=== PATIENT | male | born 1995 ===

== ENCOUNTER 2024-08-08 09:58 | Emergency (ER) | payer SELFPAY ==
[2024-08-08 10:07] VITALS: BP 160/94
--- NOTE | 2024-08-08 10:50 | ED.GENMED ---
History of Present Illness
General
Chief Complaint: Skin Surface Trauma
Source: patient
Time Seen by Provider: 08/08/24 10:32
History of Present Illness
History of Present Illness:
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 Patient's tetanus vaccine is
up-to-date, [id number], no other injury sustained.
Past History
Past History
ED Past Medical History: None
ED Past Surgical History: None
Social History
Tobacco: Non-smoker
Alcohol: None
Drug: None
Living: with family
Employment: Employed
Review of Systems
Review of Systems
All Other Systems: ROS reviewed and negative except as documented in HPI and ROS
Phy Exam
Physical Exam
Physical Exam:
GENERAL: Alert , in no apparent distress
EYE: conjunctiva clear
Head: Normocephalic atraumatic
NECK: Supple,
ENT: mmm.
LUNGS: no acute respiratory distress
NEUROLOGICAL: Alert and oriented
SKIN: Warm and dry, approximately 1 cm horizontally oriented laceration along the lateral aspect of the right index finger at the level of the PIP joint .
MUSCULOSKELETAL: well perfused. Full range of motion of the index finger, intact and equal sensation throughout
PSYCH: Normal and appropriate interaction.
Scores
Heart Failure Risk
Heart Failure Risk Score: Not Applicable
Heart Score for Chest Pain Patients
STEMI patient?: Not applicable
Withdrawal Assessment of Alcohol
Withdrawal Assessment Completed?: Not applicable
Course
Vital Signs
Initial and Last Documented VS:
Initial Vital Signs
Temp Pulse Resp BP Pulse Ox
98.8 F 103 16 160/94 99
08/08/24 10:07 08/08/24 10:07 08/08/24 10:07 08/08/24 10:07 08/08/24 10:07
Last Documented Vital Signs
Temp Pulse Resp BP Pulse Ox
98.8 F 103 16 160/94 99
08/08/24 10:07 08/08/24 10:07 08/08/24 10:07 08/08/24 10:07 08/08/24 10:07
Procedures
Laceration Closure
Right Second Finger:
Status of Wound: clean
Size of Wound in cm: 1
Description of Wound Edges: sharp
Preparation: cleaned with saline
Anesthesia: 1% Lidocaine
Revision/Debridement: routine- no revision
Skin Closure Material: 5-0 nylon
Number of sutures: 3
MDM/Problems Addressed
Differential Diagnosis Includes:
Simple laceration, no concern for tendon or nerve involvement, no signs of infection
MDM/Problems Addressed:
29-year-old male presenting to the ER for evaluation of right index finger laceration. Wound repaired as above without complication. Suture removal 10 to 12 days. Patient advised on wound care. Stable for discharge home.
*Pulse Oximetry
Patient hypoxic: no
*Critical Care Note
Total Time (30-74mins, 75-104mins- exclusive of procedures): Not Applicable
ED Attending Note
-
Portions of this chart may have been created with voice recognition software.� Occasional wrong word or��sound alike� substitutions may have occurred due to the inherent limitations of voice recognition software.
Discharge Plan
Departure
Patient Disposition: Home (Routine Discharge)
Date of Disposition: 08/08/24
Time of Disposition: 10:50
Patient with high blood pressure during this ER visit?: Yes
Discharge Problem:
Laceration of right index finger
Instructions: Laceration Repair With Stitches (DC)
Referrals:
UNKNOWN - PT DOES,NOT KNOW [Family Provider] -
Activity Restrictions/Additional Instructions:
Suture removal in 10-12 days
Discharge Date and Time
Print Language: MACEDONIAN
== END 2024-08-08 11:42 | disposition home or self-care (01) ==
LOC: EMR 09:58
PROVIDERS: EMERGENCY PHYSICIAN Student in an Organized Health Care Education/Training Program
DX: S61.210A Laceration without foreign body of right index finger without damage to nail, initial encounter (principal); W45.8XXA Other foreign body or object entering through skin, initial encounter
CPT/HCPCS: 99282; 12001